=== PATIENT | male | born 1990 | race Two or more races ===

== ENCOUNTER 2020-08-11 21:57 | Emergency (ER) | payer MEDICAID ==
[~2020-08-11] VITALS: Ht 172.7 cm; Wt 65.8 kg
--- NOTE | 2020-08-11 21:59 | NUR ---
C/O ABDOMINAL PAIN WITH NAUSEA SINCE YESTERDAY. "I FEEL LIKE MY STOMACH IS TURNING", PT AAOX4, PT PLACED ON MONITOR, NOT IN ACUTE DISTRESS, NO SOB, VSS PENDING ER PROVIDER MARIKA
[2020-08-11] MEDS ORDERED: DICYCLOMINE HCL 10 MG CAPSULE PO ONE ×2 (22:30→22:33)
[2020-08-11] MEDS ORDERED: MAG HYDROX/AL HYDROX/SIMETH 30 ML UDC PO ONE (22:30)
[2020-08-11] MEDS ORDERED: LIDOCAINE VISCOUS 2% UD 15 ML UDC MM ONE (22:30)
[2020-08-11] MEDS ORDERED: MAG HYDROX/AL HYDROX/SIMETH 30 ML UDC ONE (22:33)
[2020-08-11] MEDS ORDERED: LIDOCAINE VISCOUS 2% UD 15 ML UDC ONE (22:33)
[2020-08-11 22:40] LABS: BILIRUBIN,URINE Negative (NEGATIVE); COLOR,URINE YELLOW (YELLOW); LEUKOCYTE ESTERASE ,URINE Negative (NEGATIVE); NITRITE, URINE Negative (NEGATIVE); PROTEIN,URINE Negative (NEGATIVE); UGLUCOSE Negative (NEGATIVE); UROBILINOGEN,URINE 0.2 EU/dL (0.2)
[2020-08-11 22:49] LABS: BASOPHILS # (AUTO) 0.1 /CMM (0.0-0.2); BASOPHILS % (AUTO) 0.5 % (0.0-2.0); EOSINOPHILS % (AUTO) 0.9 % (0.0-6.0); HEMATOCRIT 48 % (39-51); LYMPHOCYTES # (AUTO) 1.3 /CMM (0.8-4.8); LYMPHOCYTES % (AUTO) 12.3 % (20.0-44.0); MEAN CORPUSCULAR HGB CONC 33 g/dl (31.0-36.0); MEAN CORPUSCULAR VOLUME 87 fL (80-96); MONOCYTES # (AUTO) 0.9 /CMM (0.1-1.30); MONOCYTES % (AUTO) 8.7 % (2.0-12.0); NEUTROPHILS # (AUTO) 8.1 /CMM (1.8-8.9); NEUTROPHILS % (AUTO) 77.6 % (43.0-81.0); PLATELET COUNT (AUTO) 83 /CMM (150-450); RED BLOOD CELL COUNT(AUTO) 5.49 MIL/uL (4.5-6.0); WHITE BLOOD COUNT (AUTO) 10.4 K/uL (4.3-11.0)
[2020-08-11 23:11] LABS: CALCIUM, SERUM 9.7 mg/dL (8.5-10.1); CREATININE 1.1 mg/dL (0.6-1.3); POTASSIUM 4.1 mmol/L (3.5-5.1)
[2020-08-11 23:17] LABS: ALBUMIN 4.3 g/dL (3.4-5.0); BILIRUBIN,DIRECT 0.1 mg/dL (0.0-0.2); BILIRUBIN,TOTAL 0.6 mg/dL (0.2-1.0); TOTAL PROTEIN, SERUM 7.8 g/dL (6.4-8.2)
[2020-08-11] MEDS ORDERED: KETOROLAC TROMETHAMINE INJ 60 MG/2 ML VIAL IM ONE (23:30)
[2020-08-11] MEDS ORDERED: KETOROLAC TROMETHAMINE INJ 30 MG/ML VIAL ONE (23:39)
[2020-08-11] MEDS ORDERED: ONDANSETRON 4 MG TAB.RAPDIS ONE (23:40)
[2020-08-11 23:41] LABS: EOSINOPHILS % (MANUAL) 2 % (0-4); LYMPHOCYTES % (MANUAL) 9 % (16-48); MONOCYTES % (MANUAL) 6 % (0-11.0); NEUTROPHILS % (MANUAL) 83 (42-76)
[2020-08-11] MEDS ORDERED: ONDA4TAB11 PO (23:47)
[2020-08-11] MEDS ORDERED: OMEP40CA13 PO (23:47)
[2020-08-12] MEDS ORDERED: ONDANSETRON 4 MG TAB.RAPDIS SL ONE
--- NOTE | 2020-08-12 | NUR ---
Patient discharged to home in stable condition. Written and verbal after care instructions given. Patient verbalizes understanding of instruction.
[2020-08-12 00:41] VITALS: BP 122/70
== END 2020-08-12 00:41 | disposition home or self-care (01) ==
LOC: ER 22:02
DX: R10.11 Right upper quadrant pain (principal); R10.13 Epigastric pain; R11.2 Nausea with vomiting, unspecified; F17.200 Nicotine dependence, unspecified, uncomplicated
CPT/HCPCS: 36415; 76705; 80048; 80076; 81003; 83690; 85007; 85025; 96372; 99284; J1885; Q0162

== ENCOUNTER 2020-08-17 14:53 | Emergency (ER) | payer MEDICAID ==
[~2020-08-17] VITALS: Ht 172.7 cm; Wt 65.8 kg
[~2020-08-17 14:53] MED LIST: OMEP40CA13 PO; ONDA4TAB11 PO
--- NOTE | 2020-08-17 15:00 | NUR ---
PERSISTENT ABDOMINAL PAIN SINCE HE WAS SEEN HERE 6 DAYS AGO [facility] TODAY. PATIENT A/OX4, BREATHING EVEN AND UNLABORED, NO SOB NOTED. NEEDS ATTENDED. KEPT COMFORTABLE. AMY BRANCH AT BEDSIDE FOR EVAL.
[2020-08-17] MEDS: IV NS 0.9% 1,000 ML BAG IV ONE (15:45)
--- NOTE | 2020-08-17 15:45 | NUR ---
IV LINE ESTABLISHED, BLOOD DRAWN AND SENT TO LAB.
[2020-08-17 15:46] LABS: BASOPHILS % (AUTO) 0.3 % (0.0-2.0); EOSINOPHILS % (AUTO) 0.6 % (0.0-6.0); HEMATOCRIT 43 % (39-51); LYMPHOCYTES # (AUTO) 0.9 /CMM (0.8-4.8); LYMPHOCYTES % (AUTO) 7.3 % (20.0-44.0); MEAN CORPUSCULAR HGB CONC 33 g/dl (31.0-36.0); MEAN CORPUSCULAR VOLUME 87 fL (80-96); MONOCYTES # (AUTO) 1.1 /CMM (0.1-1.30); MONOCYTES % (AUTO) 9.2 % (2.0-12.0); NEUTROPHILS # (AUTO) 9.9 /CMM (1.8-8.9); NEUTROPHILS % (AUTO) 82.6 % (43.0-81.0); PLATELET COUNT (AUTO) 60 /CMM (150-450); RED BLOOD CELL COUNT(AUTO) 4.92 MIL/uL (4.5-6.0); WHITE BLOOD COUNT (AUTO) 11.9 K/uL (4.3-11.0)
[2020-08-17 15:58] LABS: CALCIUM, SERUM 8.5 mg/dL (8.5-10.1); POTASSIUM 3.6 mmol/L (3.5-5.1)
[2020-08-17 16:03] LABS: ALBUMIN 3.4 g/dL (3.4-5.0); BILIRUBIN,DIRECT 0.1 mg/dL (0.0-0.2); BILIRUBIN,TOTAL 0.3 mg/dL (0.2-1.0); TOTAL PROTEIN, SERUM 6.6 g/dL (6.4-8.2)
[2020-08-17 16:27] LABS: BAND % (MANUAL) 2 % (0.0-5.0); LYMPHOCYTES % (MANUAL) 9 % (16-48); MONOCYTES % (MANUAL) 10 % (0-11.0); NEUTROPHILS % (MANUAL) 78 (42-76); REACTIVE LYMPHOCYTES 1 % (0-0)
[2020-08-17] MEDS ORDERED: IV NS 0.9% 250 ML IV ONE (16:28)
[2020-08-17] MEDS ORDERED: IOHEXOL-300 100 ML VIAL IV ONE (16:28)
[2020-08-17 17:00] LABS: BILIRUBIN,URINE Negative (NEGATIVE); COLOR,URINE YELLOW (YELLOW); LEUKOCYTE ESTERASE ,URINE Negative (NEGATIVE); NITRITE, URINE Negative (NEGATIVE); PROTEIN,URINE Negative (NEGATIVE); UGLUCOSE Negative (NEGATIVE); UROBILINOGEN,URINE 0.2 EU/dL (0.2)
[2020-08-17] MEDS ORDERED: PIPERACILLIN /TAZOBACTAM 3.375 G VIAL IV ONE (17:06)
[2020-08-17] MEDS ORDERED: AMOX-430 PO (17:06)
[2020-08-17] MEDS: IV NS 0.9% 500 ML BAG IV ONE (17:10)
[2020-08-17] MEDS: PIPERACILLIN /TAZOBACTAM 3.375 G in IV D5W 50 ML IV ONE (17:10)
[2020-08-17 18:06] VITALS: BP 116/75
--- NOTE | 2020-08-17 18:06 | NUR ---
PATIENT'S PAIN HAS IMPROVED. A/OX4, BREATHING EVEN AND UNLABORED, NO SOB NOTED, MEDICATIONS GIVEN. IV removed. Catheter intact and site benign. Pressure and 4x4 applied to site. No bleeding noted. Patient discharged to home in stable condition. Written and verbal after care instructions given. Patient verbalizes understanding of instruction.
== END 2020-08-17 18:07 | disposition home or self-care (01) ==
LOC: ER 14:56
DX: K52.9 Noninfective gastroenteritis and colitis, unspecified (principal); F17.200 Nicotine dependence, unspecified, uncomplicated
CPT/HCPCS: 36415; 74177; 80048; 80076; 81003; 83690; 85007; 85025; 87040 ×2; 96361; 96365; 99285; J2543 ×2; J7030; J7040; J7050; J7060; Q9967

== ENCOUNTER 2020-09-26 20:01 | Emergency (ER) | payer MEDICAID ==
[~2020-09-26] VITALS: Ht 172.7 cm; Wt 68.0 kg
[2020-09-26 20:01] VITALS: BP 141/84
[~2020-09-26 20:01] MED LIST changes: +AMOX-430 PO; -OMEP40CA13 PO; +OMEP40CA21 PO
[2020-09-26 20:59] LABS: BASOPHILS # (AUTO) 0.1 K/uL (0.0-0.2); BASOPHILS % (AUTO) 0.7 % (0.0-2.0); EOSINOPHILS % (AUTO) 0.6 % (0.0-6.0); HEMATOCRIT 44 % (39-51); HEMOGLOBIN 14.6 g/dL (13.5-17.5); LYMPHOCYTES # (AUTO) 1.1 K/uL (0.8-4.8); LYMPHOCYTES % (AUTO) 8.4 % (20.0-44.0); MEAN CORPUSCULAR HGB CONC 33 g/dl (31.0-36.0); MEAN CORPUSCULAR VOLUME 87 fL (80-96); MONOCYTES # (AUTO) 0.9 K/uL (0.1-1.30); MONOCYTES % (AUTO) 6.7 % (2.0-12.0); NEUTROPHILS # (AUTO) 11.2 K/uL (1.8-8.9); NEUTROPHILS % (AUTO) 83.6 % (43.0-81.0); PLATELET COUNT (AUTO) 84 K/uL (150-450); RED BLOOD CELL COUNT(AUTO) 5.02 MIL/uL (4.5-6.0); WHITE BLOOD COUNT (AUTO) 13.4 K/uL (4.3-11.0)
[2020-09-26] MEDS ORDERED: CEPHALEXIN MONOHYDRATE 500 MG CAPSULE PO ONE ×2 (21:00→22:10)
[2020-09-26] MEDS ORDERED: KETOROLAC TROMETHAMINE INJ 60 MG/2 ML VIAL IM ONE (21:00)
[2020-09-26] MEDS ORDERED: SULFAMETH/TRIMETH 800/160 MG 1 UDTAB TABLET PO ONE (21:00)
[2020-09-26 21:09] LABS: CALCIUM, SERUM 8.6 mg/dL (8.5-10.1); POTASSIUM 3.6 mmol/L (3.5-5.1)
[2020-09-26 21:21] LABS: BILIRUBIN,DIRECT 0.1 mg/dL (0.0-0.2); BILIRUBIN,TOTAL 0.4 mg/dL (0.2-1.0); TOTAL PROTEIN, SERUM 7.5 g/dL (6.4-8.2)
[2020-09-26 21:30] LABS: BAND % (MANUAL) 1 % (0.0-5.0); EOSINOPHILS % (MANUAL) 1 % (0-4); LYMPHOCYTES % (MANUAL) 6 % (16-48); MONOCYTES % (MANUAL) 7 % (0-11.0); NEUTROPHILS % (MANUAL) 85 (42-76)
[2020-09-26] MEDS ORDERED: CEPH500C2 PO (22:03)
[2020-09-26] MEDS ORDERED: SULF1TAB48 PO (22:03)
[2020-09-26] MEDS ORDERED: KETOROLAC TROMETHAMINE INJ 30 MG/ML VIAL ONE (22:10)
[2020-09-26] MEDS ORDERED: SULFAMETH/TRIMETH 800/160 MG 1 UDTAB TABLET ONE (22:10)
== END 2020-09-26 22:18 | disposition home or self-care (01) ==
LOC: ER 20:08
DX: J34.0 Abscess, furuncle and carbuncle of nose (principal); D69.6 Thrombocytopenia, unspecified; E11.9 Type 2 diabetes mellitus without complications; F17.200 Nicotine dependence, unspecified, uncomplicated; Z79.899 Other long term (current) drug therapy
CPT/HCPCS: 36415; 80048; 80076; 85007; 85025; 96372; 99283; 99406; J1885

== ENCOUNTER 2021-01-26 20:58 | Emergency (ER) | payer MEDICAID ==
[~2021-01-26] VITALS: Ht 172.7 cm; Wt 68.0 kg
[~2021-01-26 20:58] MED LIST changes: +CEPH500C2 PO; +SULF1TAB48 PO
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
[2021-01-26] MEDS ORDERED: IBUPROFEN 600 MG TABLET PO ONE (21:30)
[2021-01-26] MEDS ORDERED: IBUPROFEN 600 MG TABLET ONE (21:37)
--- NOTE | 2021-01-26 23:15 | NUR ---
[facility] at bedside for ortho splint
[2021-01-26] MEDS ORDERED: IBUP-1955 PO (23:25)
[2021-01-26] MEDS ORDERED: CEFTRIAXONE 500 MG VIAL IM ONE (23:30)
[2021-01-26] MEDS ORDERED: LIDOCAINE /MPF 1% VIAL 5 ML VIAL ONE (23:37)
[2021-01-26] MEDS ORDERED: CEFTRIAXONE 1 G VIAL ONE (23:37)
[2021-01-26] MEDS ORDERED: DOXY100T2 PO (23:37)
--- NOTE | 2021-01-26 23:46 | NUR ---
Patient discharged to home in stable condition. Written and verbal after care instructions given. Patient verbalizes understanding of instruction. Pt ambulatory with a steady gait
[2021-01-26 23:52] VITALS: BP 119/75
== END 2021-01-26 23:46 | disposition home or self-care (01) ==
LOC: ER 21:00
DX: M79.641 Pain in right hand (principal); Z20.2 Contact with and (suspected) exposure to infections with a predominantly sexual mode of transmission; F17.200 Nicotine dependence, unspecified, uncomplicated; Z79.899 Other long term (current) drug therapy; W50.0XXA Accidental hit or strike by another person, initial encounter; Y93.89 Activity, other specified; Y92.89 Other specified places as the place of occurrence of the external cause; Y99.8 Other external cause status
CPT/HCPCS: 29125; 73130; 96372; 99283; J0696; J3490

== ENCOUNTER 2021-04-07 06:55 | Emergency (ER) | payer MEDICAID ==
[~2021-04-07] VITALS: Ht 170.2 cm; Wt 68.0 kg
[~2021-04-07 06:55] MED LIST changes: +DOXY100T2 PO; +IBUP-1955 PO
[2021-04-07 07:51] VITALS: BP 126/79
[2021-04-07] MEDS ORDERED: KETOROLAC TROMETHAMINE INJ 30 MG/ML VIAL IM ONE (08:00)
[2021-04-07] MEDS ORDERED: KETOROLAC TROMETHAMINE 15 MG/ML VIAL ONE (08:16)
[2021-04-07 08:29] LABS: BILIRUBIN,URINE NEGATIVE (NEGATIVE); COLOR,URINE YELLOW (YELLOW); LEUKOCYTE ESTERASE ,URINE NEGATIVE (NEGATIVE); NITRITE, URINE NEGATIVE (NEGATIVE); PROTEIN,URINE NEGATIVE (NEGATIVE); UGLUCOSE NEGATIVE (NEGATIVE); UROBILINOGEN,URINE 0.2 EU/dL (0.2)
--- NOTE | 2021-04-07 08:45 | NUR ---
Pt eloped prior to medication administration
[2021-04-07] MEDS ORDERED: CYCL5TAB PO (09:18)
[2021-04-07] MEDS ORDERED: IBUP-1955 PO (09:18)
--- NOTE | 2021-04-07 09:31 | NUR ---
Pt eloped. Unable to locate in main ER or [facility]
== END 2021-04-07 09:31 | disposition home or self-care (01) ==
LOC: ER 06:56
DX: M54.42 Lumbago with sciatica, left side (principal); F17.200 Nicotine dependence, unspecified, uncomplicated; Z79.899 Other long term (current) drug therapy
CPT/HCPCS: J1885